=== PATIENT | male | born 1945 | race Caucasian/White ===

== ENCOUNTER 2019-11-22 09:15 | Inpatient (IN) | payer MEDICARE, BC ==
[~2019-11-22] VITALS: Ht 172.7 cm; Wt 73.7 kg
[~2019-11-22 09:15] MED LIST: AMBIEN 5MG TABLE5 MG PO; LISINOPRIL20 MG PO; ZOCOR20 MG PO
[2019-11-22 10:43] VITALS: BP 125/85; PULSE 79; TEMP 98.3
[2019-11-22] MEDS ORDERED: LYRICA 50MG CAP50 MG PO (12:03)
[2019-11-22] MEDS ORDERED: IBU600 MG PO (12:04)
[2019-11-22] MEDS ORDERED: PLAVIX 75MG TAB75 MG PO (12:04)
--- NOTE | 2019-11-22 12:21 | NUR ---
Called Bertha at [facility] to clarify med orders, she directed to YOLANDA Javier, who will follow up with this nurse.
[2019-11-22] MEDS ORDERED: NORCO 325 MG-7.1 TAB PO (15:19)
[2019-11-22] MEDS ORDERED: CELEXA 20MG20 MG/TAB PO (15:20)
[2019-11-22] MEDS ORDERED: COLACE 100100 MG/CAP PO (15:20)
--- NOTE | 2019-11-22 15:20 | NUR ---
SW met with the patient to complete initial intake, as the patient is new to [employer]. The patient lives in [place] with his , Mindy (ph#[phone]). He reports needing some assistance with ADLs before hospitalization and has a cane and walker. The patient's PCP is Dr. Rissa Moore and he receives his medications at the [facility] in [place]. He reports no difficulties obtaining his meds. The patient does not have advanced directives completed, but he was interested in obtaining a form for DPOA-HC. YUMIKO provided. SW to continue to follow to ensure a safe discharge.
[2019-11-22] MEDS ORDERED: FLOMAX 0.40.4 MG/CAP PO (15:21)
[2019-11-22] MEDS ORDERED: GLUCOPHAGE500 MG/TAB PO (15:21)
[2019-11-22] MEDS ORDERED: MASON NATURAL1200 MG PO (15:21)
[2019-11-22] MEDS ORDERED: MOBIC15 MG PO (15:26)
[2019-11-22] MEDS ORDERED: NORVASC 5MG5 MG/TAB PO (15:26)
[2019-11-22] MEDS ORDERED: KLOR-CON 1010 MEQ PO (15:28)
[2019-11-22] MEDS ORDERED: ZOCOR 20MG20 MG PO (15:28)
[2019-11-22] MEDS ORDERED: ROBAXIN 50500 MG/TAB PO (15:28)
[2019-11-22] MEDS ORDERED: MULTI VITAMINS1 TAB PO (15:39)
[2019-11-22 18:30] VITALS: BP 155/66; PULSE 80; TEMP 98.4
--- NOTE | 2019-11-22 19:00 | NUR ---
SHIFT REPORT FROM PABLITO CRAWFORD RN. PT RESTING IN BED. SEEMS AGITATED. ARGUMENTATIVE WITH FAMILY. AND DAUGHTER HERE. 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 REPORTED PT HAS BEEN IMPULSIVE. REVIEWED CALL LIGHT WITH PT. FORGETFUL.
--- NOTE | 2019-11-22 19:07 | NUR ---
GAVE NORCO 7.5MG 1 TAB. NO SWALLOWING ISSUES. LUMBAR INCSION DRSG ROLLIG UP OFF OF INCISION. REMOVED. BEATA. ALEKSANDR INTACT. PT INSISTENT HE WAS INCONT IN UNDERWEAR. - CHANGED AT THIS TIME.- UNDERWEAR DRY.
[2019-11-23 05:36] VITALS: BP 137/66; PULSE 70; TEMP 98.1
--- NOTE | 2019-11-23 07:30 | NUR ---
Patient resting in bedside recliner at this time. Patient is alert and oriented, answers questions appropriately. Patient ambulates independently in hallways frequently, denies pain at this time. Patient reports that he has passed flatus and feels movement in his bowels, but denies bowel movement yet. Student nurse reports that patient's blood pressure is elevated this morning, gave scheduled antihypertensive early. Patient denies needs at this time, call light within reach.
--- NOTE | 2019-11-23 07:30 | NUR ---
Patient resting in bed eating breakfast at this time. Patient is alert and oriented, answers most questions appropriately per his baseline. Patient requests PRN pain medication for back pain he rates a 4/10; administered per order. Patient denies further needs at this time, call light within reach.
--- NOTE | 2019-11-23 14:40 | NUR ---
YUMIKO met with the patient to follow up before the weekend and to discuss setting up a patient/family conference. The patient states that he is doing well. He requested that SW contact his , due to not being sure of what his 's work schedule is. YUMIKO contacted the patient's , Mindy. A family meeting was scheduled for , 11/29, at 1300. YUMIKO notified the patient and IPR Director. SW to continue to follow.
[2019-11-23 16:37] VITALS: BP 156/72; PULSE 78; TEMP 99.6
--- NOTE | 2019-11-23 19:30 | NUR ---
Patient awakened for HS meds/reviewed and given. Patient has word salad at times and unable to state hospital states "dipak". Has snack of banana and icecream. Returns to resting with eyes closed. "
--- NOTE | 2019-11-24 02:10 | NUR ---
Patient has been resting in bed with eyes closed until this time. Bed alarm alarming and patient sitting at FOB stating he needs to pee. Reoriented to urinal at bedside and uses sitting up on side of bed-nurse empties. With verbal cueing patient moves up and rests back in bed.
[2019-11-24 04:11] VITALS: BP 118/55; PULSE 72; TEMP 98.6
--- NOTE | 2019-11-24 09:55 | NUR ---
PT WAS GIVEN PAIN MEDS THIS AM, 1 NORCO. PAIN WAS 5/10. PT TWISTS AND IS REMINDED NOT TO TWIST, BEND OR LIFT. AM CARES DONE. NSG ASSESSMENT COMPLETED. ATE 100% MEAL. BS WAS 119. BED ALARM ON, CALL LIGHT IN REACH.
--- NOTE | 2019-11-24 13:31 | NUR ---
PT EATING WELL. HE IS INDEPENDENT IN BED. CALL LIGHT IN REACH, ALARMS ON.
[2019-11-24 16:22] VITALS: BP 109/86; PULSE 72; TEMP 99.7
--- NOTE | 2019-11-24 18:11 | NUR ---
PATIENT HAS SLEPT OFF AND ON MOST OF THE DAY TODAY. HE DID NOT GO TO THERAPY. HIS PAIN HAS BEEN CONTROLLED DURING THE DAY. ATE MOST OF HIS MEALS TODAY. DOES NOT LIKE RICE. FAMILY CAME AND TOOK HIS HOME MEDS IN THE SACK FROM THE LAST HOSPITAL THAT HE TRANSFERED FROM. THIS NURSE SPOKE TO PT;S REGARDNG LOVENOX AND PLAVIX. I CHANGED THE PLAVIX TO REFLECT WHAT THE TOLD ME AND PUT A LARGE NOTE ON THE FRONT OF THE CHART. PT CURRENTLY HAS NO PAIN
--- NOTE | 2019-11-24 19:30 | NUR ---
Patient up max 2 assist with freqent verbal cueing to wheel chair then pivot to toilet. Incontinent small amount urine in pullup and staff changes. Has large bm/staff wipes. Rests self back in bed. Reports minimal back pain at this time. meds along with norco reviewed and given. Bed alarm on. Call light in reach.
--- NOTE | 2019-11-24 22:00 | NUR ---
Rests on side with eyes closed. Respirations with ease.
--- NOTE | 2019-11-25 01:35 | NUR ---
Patient awake and states feeling good right now. Denies need for pain med.
--- NOTE | 2019-11-25 03:01 | NUR ---
Rests with eyes closed on left side. Respirations with ease.
[2019-11-25 04:46] VITALS: BP 109/69; PULSE 71; TEMP 97.8
--- NOTE | 2019-11-25 07:54 | NUR ---
Sitting up in bed eating breakfast. Alert and oriented x3. Patient at times get confused or has a loss of words but is able with time to complete sentences. Rates pain at this time 2/10 in low back. Vlad intact to low back incision. No edema or discharge at incision site. Mild redness noted where edges approximate. Patient denies needs at this time.
--- NOTE | 2019-11-25 09:17 | NUR ---
Lying in bed on left side with eyes closed. Resp even and unlabored. No signs or symptoms of discomfort noted.
--- NOTE | 2019-11-25 12:57 | NUR ---
Assisted patient with bed bath. Patient performed oral hygiene. Assisted into comfortable position in bed. Denies any needs at this time.
--- NOTE | 2019-11-25 16:05 | NUR ---
Lying in bed with eyes closed. Resp even and unlabored. No signs or symptoms of discomfort noted. Opens eyes when name called out. Denies any current needs.
[2019-11-25 16:22] VITALS: BP 144/62; PULSE 72; TEMP 98.5
--- NOTE | 2019-11-25 17:13 | NUR ---
Sitting up in bed watching TV. Patient was a little confused and thought that supper was breakfast time. Reoriented and patient says that he remembers now. Ate 75% of supper. Rates pain 1/10 in low back at this time. Denies any needs.
--- NOTE | 2019-11-25 19:30 | NUR ---
PATIENT RESTING IN BED, AWAKENS WHEN NAME CALLED, DURING SHIFT CHANGE REPORT FROM DAY SHIFT NURSE. BED ALARM ON. NO NEEDS REPORTED AT TIME OF REPORT.
--- NOTE | 2019-11-25 20:30 | NUR ---
BACK INCISION, WELL APPROXIMATED AND OPEN TO AIR, OBSERVED SOME RED SKIN DISCOLORATION, NONDRAINING TO STAPLE SITED ALONG INCISION, NO INDURATION ALONG INCISION.
--- NOTE | 2019-11-26 01:36 | NUR ---
RESTING WITH EYES CLOSED, DOES NOT AWAKEN WHEN DOOR TO ROOM OPENED, BREATHING NONLABORED AND EVEN. BED ALARM ON.
--- NOTE | 2019-11-26 04:32 | NUR ---
PATIENT RESTING IN BED, SLEEPING, DOES NOT AWAKEN WHEN DOOR TO ROOM IS OPENED, BREATHING NONLABORED/EVEN, BED ALARM ON.
[2019-11-26 05:25] VITALS: BP 130/60; PULSE 64; TEMP 97.9
[2019-11-26 06:39] LABS: BASO # 0.1 (0.0-0.2); BASO % 1.1 % (0.0-2.0); EOS # 0.4 (0.0-0.7); GRAN # 4.1 (1.4-6.5); GRAN % 61.4 % (42.2-75.2); LYMPH # 1.5 (1.2-3.4); LYMPH % 21.9 % (20.0-51.0); MEAN CELL VOLUME 92 fl (80.0-100.0); MEAN CORPUSCULAR HGB CONC 33 g/dl (33.0-37.0); MEAN PLATELET VOLUME 9.6 fl (7.4-10.4); MONO # 0.6 (0.1-0.6); MONO % 8.8 % (1.7-9.3); PLATELET COUNT 335 K/mm3 (130-400); RED BLOOD COUNT 3.23 M/mm3 (4.20-5.60)
[2019-11-26 06:46] LABS: CALCIUM 8.8 mg/dL (8.4-10.2); CREATININE, serum 0.64 (0.66-1.25); MAGNESIUM 1.8 mg/dL (1.6-2.3); POTASSIUM 4.1 mmol/L (3.4-5.0)
[2019-11-26 06:48] LABS: HEMATOCRIT 29.7 % (42.0-52.0); HEMOGLOBIN 9.7 g/dl (13.5-18.0); MEAN CORPUSCULAR HEMOGLOBIN 30 pg (27.0-31.0)
--- NOTE | 2019-11-26 07:27 | NUR ---
PATIENT IN BED DURING SHIFT CHANGE REPORT GIVEN TO DAY SHIFT NURSE. BED ALARM ON.
--- NOTE | 2019-11-26 09:01 | NUR ---
Patient reported that he did not sleep well last night due to his pillow not being comfortable. He tried to use a pair of his sweat pants for a pillow and that worked for a short period of time. He did not like the feel of the bed due to it being to hard. Will place a egg crate cushion on bed and provide him a different pillow. Will continue to monitor.
--- NOTE | 2019-11-26 14:37 | NUR ---
Director Professional Services met with the patient to follow up from the weekend. SW confirmed with patient that family meeting is scheduled for 11/29/2019 at 1300. Patient does not have any questions or concerns at this time. SW to continue to follow.
--- NOTE | 2019-11-26 14:49 | NUR ---
Patient resting in bed call light in reach, bed alarm set and has slip proof socks on. Patient has been educated on the need to use his call light when needing to use the bathroom. He continues to get up on his own without calling for assistance to use the urinal at bedside. Will continue to educate patient on the need to call first prior to standing.
[2019-11-26 18:25] VITALS: BP 139/71; PULSE 66; TEMP 98.8
--- NOTE | 2019-11-26 19:40 | NUR ---
PATIENT RESTING IN BED DURING SHIFT CHANGE REPORT FROM DAY SHIFT NURSE. BED ALARM ON. DENIES ANY NEEDS OR COMPLAINTS OF PAIN
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
--- NOTE | 2019-11-26 20:35 | NUR ---
Patient attended all therapies today, denied any questions and is currently resting in bed call light in reach and alarm set. He tolerated diet well this shift.
--- NOTE | 2019-11-26 20:38 | NUR ---
Reported off to night nurse.
--- NOTE | 2019-11-27 01:01 | NUR ---
PATIENT AGREED TO HAVE AIR MATTRESS OVERLAY PUT ON BED. BED ALARM ON.
--- NOTE | 2019-11-27 04:00 | NUR ---
PATIENT RESTING WITH EYES CLOSED, BED ALARM ON. DOES NOT AWAKEN WHEN DOOR TO ROOM OPENED. BREATHING EVEN AND NONLABORED.
[2019-11-27 05:20] VITALS: BP 125/59; PULSE 61; TEMP 97.9
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
--- NOTE | 2019-11-27 13:09 | NUR ---
Patient attended all morning therapies. He is indepedent with eating and grooming tasks.
[2019-11-27 15:46] VITALS: BP 129/58; PULSE 67; TEMP 97.9
--- NOTE | 2019-11-27 18:08 | NUR ---
Patient watching TV while resting in bed, call light in reach and bed alarm set.
--- NOTE | 2019-11-27 20:00 | NUR ---
meds along with norco for pain prevention reviewed and given. Denies pain at this time. Snack of pudding given. Urinal emptied.
--- NOTE | 2019-11-28 01:24 | NUR ---
Patient awake and sits up on side of bed to use urinal. Rests back in bed.
--- NOTE | 2019-11-28 03:30 | NUR ---
Rests with eyes closed. Respirations with ease.
[2019-11-28 05:20] VITALS: BP 137/65; PULSE 73; TEMP 97.9
--- NOTE | 2019-11-28 15:52 | NUR ---
Consulting Nurse met with patient to provide copy of team conference notes. SW reviewed recommendations for Home Health and grab bars. Patient confirmed he does have a walker at home. Patient advised he is planning on having grab bars installed in his home upon discharge and knows where to purchase them and that he can afford them. SW provided Medicare.gov list of Home Health agencies that serve [place]. SW will follow up on patient choice tomorrow. SW reviewed discharge date of Tuesday with patient who is in agreeance. SW to continue to follow.
[2019-11-28 16:29] VITALS: BP 132/71; PULSE 72; TEMP 98
--- NOTE | 2019-11-28 19:48 | NUR ---
Pt sets off bed alarm by sitting up on side of bed to use urinal, independent with this, assisted with emptying, returned to bedside tray. Bed alarm on, call lt in reach. Report to NEDRA Avila. Gripper socks in place.
--- NOTE | 2019-11-29 02:30 | NUR ---
Patient states he's been sleeping well. Denies pain or needs at this time. Urinal emptied.
[2019-11-29 05:05] VITALS: BP 134/74; PULSE 71; TEMP 97.9
--- NOTE | 2019-11-29 09:08 | NUR ---
All henny removed, cleansed few scabbed areas with sterile saline and gauze, pt jailyn well, no drainage present, edges approximated, no swelling, redness around staple sites. Applied steris and airstrip, dated.
[2019-11-29 15:08] VITALS: BP 117/65; PULSE 80; TEMP 98.7
--- NOTE | 2019-11-29 15:54 | NUR ---
Court Manager participated in family meeting which included patient's Mindy, patient's daughter Tea (ph#[phone]), PT/OT/ST, and IPR Director Naya. Naya opened the meeting and explained it's purpose, then the therapy team reviewed patient's progress and discharge needs. Patient to discharge on Tuesday and reports he plans on installing grab bars in his bathroom. Patient's daughter expressed some concern about patient's ability to use stairs as he has a couple sets of stairs at home. PT advised this is something they would work on prior to discharge. After the family meeting, YUMIKO followed up on Home Health choice. [facility] preference and [facility] second preference. SW contacted [facility] and they advised they do not serve [place]. SW contacted [facility] and faxed referral. SW notified patient that [facility] could not accept referral and he advised he was okay with [facility]. SW to continue to follow.
--- NOTE | 2019-11-29 21:00 | NUR ---
SHIFT REPORT REC'D FROM PABLITO Jimenez RN. PT RESTING IN BED. WEARING BACK BRACE. DENIES PAIN. NUMBNESS OR TINGLING. SHIFT ASSESSMETN COMPLETED. FAMILY HRE. NO NEEDS AT THIS TIME.
--- NOTE | 2019-11-29 21:16 | NUR ---
Pt made mod I in rm w/ brace and walker. Bedside report to NEDRA Damian.
--- NOTE | 2019-11-30 06:22 | NUR ---
PT HAD UNEVENTFUL NIGHT. AWAKE THIS AM. DENIES NEEDS. REVIEWED THERAPY SCHEDULE.
--- NOTE | 2019-11-30 13:34 | NUR ---
Silver Cleaner contacted Kelsi at [facility] who advised they would likely be able to accept referral and are aware of patient's discharge date (12/01/2019). SW presented and explained IM form to patient who verbalized understanding and provided signature. Patient declined copy. SW placed form in chart. SW will send orders upon discharge.
--- NOTE | 2019-11-30 15:14 | NUR ---
Patient resting in bed at this time, call light in reach and is independent in his room. Patient independent with eating, oral hygiene, toileting hygiene, toileting transfers, upper dressing, lower dressing, putting on footwear, roll L&R, Sit to Lying, lying to sitting, sit to stand, bad/chair transfers, and walking 10 feet. Patient able to put his back brace on independently as well. He is continent of bowel and bladder eats a carb controlled regular diet and has NO ulcersor sores.
--- NOTE | 2019-11-30 16:24 | NUR ---
Patient resting in bed at this time, call light in reach and is independent in his room. Denies pain at this time.
[2019-11-30 16:51] VITALS: BP 122/57; PULSE 66; TEMP 98.5
--- NOTE | 2019-11-30 21:00 | NUR ---
PT READY FOR SLEEP. DENIES PAIN. MOD I IN ROOM WITH WALKER AND BACK BRACE.- COMPLIANT. SEE ASSESSMENT.
[2019-12-01 05:10] VITALS: BP 123/67; PULSE 66; TEMP 98
--- NOTE | 2019-12-01 08:34 | NUR ---
Report from NEDRA Damian. Pt jailyn mod I in rm w/ brace in place and walker. Pt plans to discharge home today, declined offer to attend group therapy (not required today), pleasantly confused, expressive aphasia at times, ate all breakfast, denies any back problems.
[2019-12-01] MEDS ORDERED: TYLENOL 325MG325 MG PO (08:57)
[2019-12-01] MEDS ORDERED: NORCO 325 MG-51 TAB PO (08:59)
--- NOTE | 2019-12-01 12:54 | NUR ---
YUMIKO faxed DC orders to [facility] @ . [place]
--- NOTE | 2019-12-01 14:42 | NUR ---
Examined pt's midline back incision: edges approximated with slight redness immediately around sites where henny were removed by this nurse on the 29 of November. Most steris intact, applied more where a few were missing. No drainage, non-tender, no swelling. Pt denies pain. Pt able to don and doff back brace independently. Stressed importance of back restrictions, weight limit, and wearing brace with patient and , Mindy, and daughter Wendy.
--- NOTE | 2019-12-01 14:46 | NUR ---
Printed patient health summary, discharge instructions, and home med list and reviewed with and pt. Stressed importance of follow up appointments. Reviewed each home medication, called new meds in to [facility]. Printed prescription for [place] given, however, pt has not required any since . Pt belongings gathered by staff, pt and family including upper dentures, bilateral hearing aides, glasses, back brace in place, clothes, shoes, took wallet home and meds home previously. Pt toileted, then transported via wheelchair by [facility] [place] for ride home with family. Pt, , and daughter denied any questions.
--- NOTE | 2019-12-01 19:58 | NUR ---
Faxed face sheet, discharge summary, orders, and nursing note pertaining to staple removal and note today about incision to [facility], received "OK" fax receipt.
== END 2019-12-01 14:30 | disposition home health service (06) | DRG 948 ==
PROVIDERS: ADMIT Internal Medicine
DX: R53.81 Other malaise (principal); M54.16 Radiculopathy, lumbar region; E78.5 Hyperlipidemia, unspecified; I10 Essential (primary) hypertension; G47.33 Obstructive sleep apnea (adult) (pediatric); K21.9 Gastro-esophageal reflux disease without esophagitis; E11.40 Type 2 diabetes mellitus with diabetic neuropathy, unspecified; M19.90 Unspecified osteoarthritis, unspecified site; Z86.73 Personal history of transient ischemic attack (TIA), and cerebral infarction without residual deficits
CPT/HCPCS: 99222-AI; 99231-AI; 99232-AI; 99239; J1650